=== PATIENT | female | born 1965 | race Hispanic/Latino ===

== ENCOUNTER 2021-01-20 09:28 | Outpatient (CLI) | payer BC | END 2021-01-20 09:29 | disposition home or self-care (01) | LOC: BICMAMMO 09:28 | PROVIDERS: ATTEND Nurse Practitioner Family | DX: R92.8 Other abnormal and inconclusive findings on diagnostic imaging of breast (principal) | CPT/HCPCS: G0279 ==

== ENCOUNTER 2021-12-15 18:52 | Emergency (ER) | payer BC | END 2021-12-15 20:45 | disposition home or self-care (01) | LOC: ERS 18:52 | DX: G51.0 Bell's palsy (principal); R03.0 Elevated blood-pressure reading, without diagnosis of hypertension; K21.9 Gastro-esophageal reflux disease without esophagitis | CPT/HCPCS: 99283 ==